=== PATIENT | female | born 1970 ===

== ENCOUNTER → 2023-08-03 06:19 | Day surgery (SDC) | payer BC, SELFPAY | LOC: GI 06:19 | PROVIDERS: ATTENDING PHYSICIAN Surgery; FAMILY PHYSICIAN Nurse Practitioner | DX: Z12.11 Encounter for screening for malignant neoplasm of colon (principal); Z86.010 Personal history of colon polyps; K57.30 Diverticulosis of large intestine without perforation or abscess without bleeding; D12.3 Benign neoplasm of transverse colon | CPT/HCPCS: 45385; 88305 ==

== ENCOUNTER → 2023-11-04 15:43 | Outpatient (REF) | payer BC, SELFPAY | LOC: CLAB 15:43 | PROVIDERS: ATTENDING PHYSICIAN Surgery | DX: R85.610 Atypical squamous cells of undetermined significance on cytologic smear of anus (ASC-US) (principal) | CPT/HCPCS: 88305 ==

== ENCOUNTER → 2024-01-26 14:09 | Outpatient (REF) | payer BC, SELFPAY | LOC: CLAB 14:09 | PROVIDERS: ATTENDING PHYSICIAN Physician Assistant | DX: Z86.19 Personal history of other infectious and parasitic diseases (principal) | CPT/HCPCS: 87624; 88112 ==

== ENCOUNTER → 2024-10-18 09:00 | Outpatient (REF) | payer BC, SELFPAY | LOC: CLAB 09:00 | PROVIDERS: ATTENDING PHYSICIAN Physician Assistant | DX: Z86.19 Personal history of other infectious and parasitic diseases (principal) | CPT/HCPCS: 87624; 88112 ==